=== PATIENT | female | born 1970 | race African-American/Black ===

== ENCOUNTER 2019-01-25 07:11 | Inpatient (IN) | payer OTHER ==
[2019-01-22 12:06] VITALS: BMI 31.4
[2019-01-25 08:33] LABS: Hemoglobin 10.9 g/dL (12.0-16.0); Mean Corpuscular HGB CONC 33.3 g/dL (32.0-36.0); Mean Corpuscular Hemoglobin 30.4 pg (27.0-31.0); Mean Corpuscular Volume 91.3 fL (78.0-98.0); Platelet Count 336 thou/uL (130-400); RBC Distribution Width 13.1 % (11.5-14.5); White Blood Cell (WBC) Count 10.1 thou/uL (4.8-10.8)
[2019-01-25 08:48] LABS: Anion Gap 12 mmol/L (10-20); BUN (Urea Nitrogen) 12 mg/dL (7.0-18.7); Calc. Creatinine Clearance 122 mL/min (70-130); Calcium 9.9 mg/dL (7.8-10.44); Carbon Dioxide 27 mmol/L (22-29); Chloride 105 mmol/L (98-107); Estimated GFR-MDRD 87; Glucose 97 mg/dL (70-105); Potassium 4.2 mmol/L (3.5-5.1); Sodium 140 mmol/L (136-145)
[2019-01-25] MEDS ORDERED: Sodium Chloride 0.9% 10 ML ONE (10:18)
[2019-01-25] MEDS ORDERED: Fentanyl 250 MCG/5 ML VIAL ONE (10:34)
[2019-01-25] MEDS ORDERED: Labetalol HCl 100 MG/20 ML VIAL ONE (12:15)
--- NOTE | 2019-01-25 12:37 | OP ---
DATE OF PROCEDURE: 01/25/2019 PRODUCTION UTILITY WORKER: Tl Cuellar PA-C PROCEDURES PERFORMED: Anterior cervical diskectomy, C5 through T1; attempted interbody arthrodesis, C5-C6 and C6-C7; interbody arthrodesis, C7-T1; and anterior titanium instrumentation, C5 to T1. DESCRIPTION OF PROCEDURE: The patient was brought to the operating room and intubated. She was positioned supine in modest extension on a gel-filled donut. She had very limited range of motion cervically. An incision was made in the right precervical area and dissected medial to the sternocleidomastoid muscle, identified the anterior cervical spinal, and the level was confirmed by x-ray. At the C5-C6 level, there was near complete autofusion. At the C6-C7 level, there was partial autofusion. Distraction was attempted across all of these disk spaces, and ultimately only the C7-T1 disk could be adequately debrided such that interbody arthrodesis could be performed. After extensive debridement of anterior osteophytes at all levels, the C7-T1 interspace was prepared for arthrodesis and appropriate-sized intervertebral biomechanical PEEK device was brought into the field and filled with demineralized bone matrix and local morselized autograft, and tapped in place securely at C7-T1. An anterior plate was brought into the field and secured to C5, C6, C7, and T1 using two 14-mm screws at each level. The wound was then extensively irrigated and maximum hemostasis was secured and the wound was closed in anatomic layers over drain. Job ID: [id number]
[2019-01-25] MEDS ORDERED: Fentanyl 100 MCG/2 ML VIAL ONE (12:41)
[2019-01-25] MEDS ORDERED: diphenhydrAMINE 50 MG/ML VIAL IVP PRN (13:00)
[2019-01-25] MEDS ORDERED: Ondansetron PF 4 MG/2 ML Vial IVP PRN (13:00)
[2019-01-25] MEDS ORDERED: Promethazine HCl 25 MG/ML VIAL IM PRN ×3 (13:00→13:20)
[2019-01-25] MEDS ORDERED: Milk Of Magnesia 30 ML UDCUP PO PRN (13:00)
[2019-01-25] MEDS ORDERED: Morphine 4 MG/ML VIAL SLOW IVP PRN (13:00)
[2019-01-25] MEDS ORDERED: Promethazine 25 MG TAB PO PRN (13:00)
[2019-01-25] MEDS ORDERED: traMADol HCl 50 MG TAB PO PRN ×2 (13:00)
[2019-01-25] MEDS ORDERED: diphenhydrAMINE 25 MG CAP PO PRN (13:00)
[2019-01-25] MEDS ORDERED: Promethazine HCl 12.5 MG SUPP PR PRN (13:00)
[2019-01-25] MEDS ORDERED: Mag-Al 1200 mg/1200 mg/30 ML UDCUP PO PRN (13:00)
[2019-01-25] MEDS ORDERED: tiZANidine HCl 4 MG TAB PO PRN (13:00)
[2019-01-25] MEDS ORDERED: oxyCODONE/Acetaminophen 5 mg/325 mg Tablet PO PRN (13:05)
[2019-01-25] MEDS ORDERED: Promethazine HCl 25 MG/ML VIAL SLOW IVP PRN ×2 (13:19→13:20)
[2019-01-25] MEDS ORDERED: Ondansetron HCl/PF 4 MG/2 ML Vial IVP PRN ×2 (13:19→13:20)
[2019-01-25] MEDS ORDERED: Cyclobenzaprine 10 MG TAB PO PRN (13:20)
[2019-01-25] MEDS ORDERED: GABAPENTIN 250 MG/5 ML PO SCH (15:00)
[2019-01-25] MEDS: HYDROcodone/Acetaminophen 10/325 mg Tablet PO SCH ×2 (15:13→21:15)
[2019-01-25] MEDS: Sodium Chloride 0.9% 1,000 ML IV SCH (15:46)
[2019-01-25] MEDS ORDERED: Lidocaine 1% PF 5 ML VIAL ONE (16:08)
[2019-01-25] MEDS ORDERED: Ondansetron PF 4 MG/2 ML Vial ONE (16:08)
[2019-01-25] MEDS ORDERED: Glycopyrrolate 0.2 MG/ML 5 ML SYRINGE ONE (16:08)
[2019-01-25] MEDS ORDERED: Rocuronium Bromide 10 MG/ML (10ML VIAL) ONE (16:08)
[2019-01-25] MEDS ORDERED: PROPOFOL 200 MG/20 ML VIAL ONE (16:08)
[2019-01-25] MEDS: Ondansetron ODT 4 MG TAB PO SCH ×2 (16:21→20:41)
[2019-01-25] MEDS: CEFAZOLIN 2 GM in Premix Bag 1 BAG IVPB SCH ×2 (16:21→23:44)
[2019-01-25] MEDS: metFORMIN 500 MG TAB PO SCH (16:53)
[2019-01-25] MEDS: Metoprolol Tartrate 50 MG TAB PO SCH (18:22)
[2019-01-25] MEDS: Losartan 25 MG TAB PO SCH (18:22)
[2019-01-25] MEDS: Calcium Carbonate + Vit D 1 TAB PO SCH (20:41)
[2019-01-25] MEDS ORDERED: Simvastatin 5 MG TAB PO SCH (21:00)
[2019-01-25] MEDS ORDERED: tiZANidine HCl 4 MG TAB PO SCH (21:00)
[2019-01-25] MEDS: Morphine 2 MG/ML SYRINGE SLOW IVP PRN (21:16)
[2019-01-26] MEDS: Morphine 2 MG/ML SYRINGE SLOW IVP PRN (02:45)
[2019-01-26] MEDS: Sodium Chloride 0.9% 1,000 ML IV SCH (05:51)
--- NOTE | 2019-01-26 07:10 | PRG ---
DATE OF SERVICE: 01/26/2019 SUBJECTIVE: The patient is a 48-year-old female status post C5-T1 ACDF. She is postoperative day #1. Following the surgery, she was transitioned to the floor where she has had some issues with pain control overnight, but is improved with the p.r.n. IV morphine. She is voiding appropriately. The patient also have some issues with dysphagia, but is able to tolerate a small amount of soft diet such as pudding or jello. She is having difficulty taking any oral pills at this time. Her SUE drain had only 10 mL of output overnight. The patient is awakened easily this morning. She is uncomfortable. She does have free active range of motion of all extremities. No focal motor weakness is appreciated. Her incision is intact, dry, and soft. There is no drainage in the SUE at this time. We will plan to remove the SUE bulb. We will treat the patient with 10 mg of IV Decadron once for her postoperative dysphagia. She is a known diabetic and the hospitalist team is assisting with her glucose. Nursing will continue to monitor closely and she may need sliding scale depending on her glucose levels. We will continue to mobilize the patient and I anticipate she will be able to be discharged home the next day or two. Job ID: [id number]
[2019-01-26] MEDS ORDERED: Dexamethasone 10 MG/ML VIAL SLOW IVP SCH (07:30)
[2019-01-26] MEDS ORDERED: HumaLOG 300 UNITS/3 ML VIAL SC PRN (08:15)
[2019-01-26] MEDS ORDERED: Dextrose 5% in Water 1,000 ML IV PRN (08:15)
[2019-01-26] MEDS ORDERED: Dextrose 50% Abboject 50 ML SYRINGE SLOW IVP PRN (08:15)
[2019-01-26] MEDS ORDERED: Loratadine 10 MG TAB PO SCH (09:00)
[2019-01-26] MEDS ORDERED: Ubidecarenone 50 MG CAP PO SCH (09:00)
[2019-01-26] MEDS ORDERED: Multivitamin W/ Minerals 1 TAB PO SCH (09:00)
[2019-01-26] MEDS ORDERED: Montelukast Sodium 10 mg Tablet PO SCH (09:00)
[2019-01-26] MEDS ORDERED: Furosemide 20 MG TAB PO SCH (09:00)
[2019-01-26] MEDS ORDERED: valACYclovir 500 MG TAB PO SCH (09:00)
[2019-01-26] MEDS: Metoprolol Tartrate 50 MG TAB PO SCH (09:43)
[2019-01-26] MEDS: Ondansetron ODT 4 MG TAB PO SCH ×2 (09:43→15:22)
[2019-01-26] MEDS: Losartan 25 MG TAB PO SCH (09:45)
[2019-01-26] MEDS: Calcium Carbonate + Vit D 1 TAB PO SCH (09:47)
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
[2019-01-26] MEDS: HYDROcodone/Acetaminophen 10/325 mg Tablet PO SCH ×2 (10:50→15:59)
[2019-01-26] MEDS: metFORMIN 500 MG TAB PO SCH (10:50)
[2019-01-26 11:19] VITALS: BP 148/64; TEMP 99.1
--- NOTE | 2019-01-26 21:03 | EKG ---
Test Reason : PREOP Blood Pressure : / mmHG Vent. Rate : 060 BPM Atrial Rate : 060 BPM P-R Int : 186 ms QRS Dur : 082 ms QT Int : 436 ms P-R-T Axes : 057 036 031 degrees QTc Int : 436 ms Normal sinus rhythm Normal ECG No previous ECGs available Confirmed by FAITH HOOD, DR. Hood ([id number]) on 01/26/2019 9:02:32 PM Referred By: FREDI Confirmed By:DR. Erwin CUEVAS MD
== END 2019-01-26 16:10 | disposition home or self-care (01) | DRG 472 ==
LOC: SURG A 07:11 → EDSTATUS 10:08 → 3SE 12:55
PROVIDERS: ADMIT Neurological Surgery; ATTEND Neurological Surgery
PROC: 0RG10A0 Fusion of Cervical Vertebral Joint with Interbody Fusion Device, Anterior Approach, Anterior Column, Open Approach (ICD-10-PCS; principal; 2019-01-25)
PROC: 0RB30ZZ Excision of Cervical Vertebral Disc, Open Approach (ICD-10-PCS; 2019-01-25)
DX: M54.2 Cervicalgia (principal); G95.9 Disease of spinal cord, unspecified; G89.29 Other chronic pain; E11.9 Type 2 diabetes mellitus without complications; I10 Essential (primary) hypertension; E78.5 Hyperlipidemia, unspecified; Z98.890 Other specified postprocedural states; Z91.040 Latex allergy status
CPT/HCPCS: 36416; 76000; 80048; 85027; 93005; 93010; C1713; C1776; J1100; J2270; J3010; J3490; Q0162; Q0169